=== PATIENT | male | born 1995 | race Caucasian/White ===

== ENCOUNTER 2016-09-18 18:23 | Emergency (ER) | payer OTHER ==
[2016-09-18] MEDS ORDERED: DIPHENOX-ATROP STARTER PACK 8 TAB BTL PO STA (19:06)
[2016-09-18] MEDS ORDERED: ONDANSETRON ODT 4 MG TAB PO STA (19:06)
[2016-09-18] MEDS ORDERED: ONDANSETRON 4 MG ODT STARTER PACK 2 TAB BTL PO STA (19:06)
--- NOTE | 2016-09-18 19:09 | ED ---
General Adult HPI - General Chief complaint: Nausea/Vomiting/Diarrhea Stated complaint: HOT AND COLD FLASHES, VOMITING Time Seen by Provider: 09/18/16 18:40 Source: patient, RN notes reviewed Mode of arrival: ambulatory Limitations: no limitations - History of Present Illness Initial comments: This is a 21-year-old male who presents emergency Department complaining of vomiting 3 today and diarrhea all day yesterday. Patient states the diarrhea is slowing down today. Patient states he has no abdominal pain. Patient denies any fever chills per patient states his had the same the last couple of days. Patient denies any back pain. Patient denies any dysuria hematuria urinary frequency. Patient denies any chest pain difficult breathing shortness of breath. Patient states he has been able to drink ike ramon. Patient states he hasn't vomited now for over 2 hours. - Related Data Home Medications Medication Instructions Recorded Confirmed No Known Home Medications [No 09/18/16 09/18/16 Known Home Medications] Allergies Allergy/AdvReac Type Severity Reaction Status Date / Time No Known Allergies Allergy Verified 09/18/16 18:56 Review of Systems ROS Statement: Those systems with pertinent positive or pertinent negative responses have been documented in the HPI. ROS Other: All systems not noted in ROS Statement are negative. Past Medical History Past Medical History: No Reported History History of Any Multi-Drug Resistant Organisms: None Reported Past Surgical History: No Surgical Hx Reported Past Psychological History: No Psychological Hx Reported Smoking Status: Never smoker Past Alcohol Use History: Occasional Past Drug Use History: Marijuana General Exam - General Exam Comments Initial Comments: GENERAL: Patient is well-developed and well-nourished. Patient is nontoxic and well- hydrated and is in no acute distress. ENT: Neck is soft and supple. No significant lymphadenopathy is noted. Moist mucous membranes. EYES: The sclera were anicteric and conjunctiva were pink and moist. Extraocular movements were intact and pupils were equal round and reactive to light. PULMONARY: Unlabored respirations. Good breath sounds bilaterally. No audible rales rhonchi or wheezing was noted. CARDIOVASCULAR: There is a regular rate and rhythm without any murmurs gallops or rubs. ABDOMEN: Soft and nontender with normal bowel sounds. No palpable organomegaly was noted. There is no palpable pulsatile mass. SKIN: Skin is clear with no lesions or rashes and otherwise unremarkable. NEUROLOGIC: Patient is alert and oriented x3. Cranial nerves II through XII are grossly intact. Motor and sensory are also intact. Normal speech, volume and content. Symmetrical smile. MUSCULOSKELETAL: Normal extremities with adequate strength and full range of motion. PSYCHIATRIC: Normal psychiatric evaluation. Limitations: no limitations Course Vital Signs 09/18/16 18:38 Temperature 97.9 F Pulse Rate 118 H Respiratory 20 Rate Blood Pressure 145/84 O2 Sat by Pulse 98 Oximetry Disposition Clinical Impression: Gastroenteritis Disposition: HOME SELF-CARE Condition: Good Instructions: Gastroenteritis (ED) Referrals: Kapil Roberts MD [Primary Care Provider] - 1-2 days Time of Disposition: 19:09
[2016-09-18 19:33] VITALS: BP 145/91; PULSE 100; RESP 18; TEMP 99.1
== END 2016-09-18 19:33 | disposition home or self-care (01) ==
LOC: EC 18:23
DX: K52.9 Noninfective gastroenteritis and colitis, unspecified (principal); R11.10 Vomiting, unspecified
CPT/HCPCS: 99283; S0119

== ENCOUNTER 2017-11-01 20:36 | Emergency (ER) | payer OTHER ==
[2017-11-01 20:55] VITALS: BP 157/88; PULSE 74; RESP 16; TEMP 98.1
[2017-11-01] MEDS ORDERED: DIPH,PERTUS(ACELL)TETVAC-LF 0.5 ML VIAL IM ONE (21:23)
--- NOTE | 2017-11-01 21:24 | ED ---
General Adult HPI - General Chief complaint: Animal Bite Stated complaint: cat bite Time Seen by Provider: 11/01/17 21:09 Source: patient, RN notes reviewed Mode of arrival: ambulatory Limitations: no limitations - History of Present Illness Initial comments: 22-year-old nail presents to the emergency room for a chief complaint of cat bite 2 hours ago to right foot. Patient is not sure if the cat is vaccinated but the cat is an indoor cat and never left the house. Patient's tetanus is not up-to-date. Patient denies any ALLERGIES to any medications or antibiotics. Patient denies any other injuries. Patient has no other complaints at this time including shortness of breath, chest pain, abdominal pain, nausea or vomiting, headache, or visual changes. - Related Data Home Medications Medication Instructions Recorded Confirmed lamoTRIgine [LaMICtal] 25 mg PO DAILY 11/01/17 11/01/17 traZODone HCL 50 mg PO HS 11/01/17 11/01/17 Previous Rx's Medication Instructions Recorded Amoxicillin/Potassium Clav 1 tab PO Q12HR #20 tab 11/01/17 [Augmentin 875-125 Tablet] Allergies Allergy/AdvReac Type Severity Reaction Status Date / Time No Known Allergies Allergy Verified 09/18/16 18:56 Review of Systems ROS Statement: Those systems with pertinent positive or pertinent negative responses have been documented in the HPI. ROS Other: All systems not noted in ROS Statement are negative. Past Medical History Past Medical History: No Reported History History of Any Multi-Drug Resistant Organisms: None Reported Past Surgical History: No Surgical Hx Reported Past Psychological History: No Psychological Hx Reported Smoking Status: Never smoker Past Alcohol Use History: Occasional Past Drug Use History: Marijuana General Exam Limitations: no limitations General appearance: alert, in no apparent distress Respiratory exam: Present: normal lung sounds bilaterally. Absent: respiratory distress, wheezes, rales, rhonchi, stridor Cardiovascular Exam: Present: regular rate, normal rhythm, normal heart sounds. Absent: systolic murmur, diastolic murmur, rubs, gallop, clicks Extremities exam: Present: full ROM (Full range motion of the digits of the right foot and the right ankle.), normal capillary refill (Refill less than 2 seconds and pedal pulse 2+.), other (There are 2 superficial abrasions about 2 cm in length on the dorsal right foot. No open lacerations. No drainage from the wounds.). Absent: tenderness (No tenderness in the right foot.), pedal edema, joint swelling Course Vital Signs 11/01/17 20:51 Temperature 98.1 F Pulse Rate 74 Respiratory 16 Rate Blood Pressure 157/88 O2 Sat by Pulse 98 Oximetry Medical Decision Making - Medical Decision Making 22-year-old male presents to the emergency department for a chief complaint of cat bite to the right foot. Patient states that the cat is an indoor cat and was never let outside before. Patient is not up-to-date on tetanus. On exam there is 2 superficial lacerations about 2 cm in length to the dorsal right foot. Patient has full range of motion of the right foot and right digits. No signs of infection present. No open lacerations that need stitches. Neurovascularly intact in the right lower extremity. Patient's foot was soaked in water and soap. He was given a tetanus shot. His foot was covered with bacitracin and wrapped. He will be given Augmentin. He is to follow-up with primary care in 1-2 days. He is to return to the emergency department if he has any worsening symptoms. Disposition Clinical Impression: Cat bite Disposition: HOME SELF-CARE Condition: Good Instructions: Animal Bite (ED) Additional Instructions: Take Augmentin as directed. Please monitor for any signs of infection such as spreading redness, streaking redness, or drainage from the wounds. Return if he notices any of these or any other worsening symptoms. Otherwise follow-up with primary care in 1-2 days. Prescriptions: Amoxicillin/Potassium Clav [Augmentin 875-125 Tablet] 1 tab PO Q12HR #20 tab Is patient prescribed a controlled substance at d/c from ED?: No Referrals: Kapil Roberts MD [Primary Care Provider] - 1-2 days Time of Disposition: 21:23
== END 2017-11-01 21:56 | disposition home or self-care (01) ==
LOC: EC 20:36
DX: S91.311A Laceration without foreign body, right foot, initial encounter (principal); Z23 Encounter for immunization; Z79.899 Other long term (current) drug therapy; W55.01XA Bitten by cat, initial encounter
CPT/HCPCS: 90471; 90715; 99283

== ENCOUNTER 2018-08-10 18:16 | Emergency (ER) | payer OTHER ==
[2018-08-10] MEDS ORDERED: SODIUM CHLORIDE 0.9% 500 ML 500 ML IV STA (18:53)
[2018-08-10 19:27] LABS: Basophils % (A) 0 %; Eosinophils # (A) 0.1 k/uL (0-0.7); Eosinophils % (A) 1 %; HCT 44.9 % (39.0-53.0); HGB 15.2 gm/dL (13.0-17.5); Lymphocytes # (A) 1.7 k/uL (1.0-4.8); Lymphocytes % (A) 11 %; MCH 28.8 pg (25.0-35.0); MCV 84.8 fL (80.0-100.0); Mean Platelet Volume 7.6; Monocytes # (A) 0.7 k/uL (0-1.0); Monocytes % (A) 5 %; Neutrophils # (A) 12.4 k/uL (1.3-7.7); Neutrophils % (A) 82 %; Platelet Count 225 k/uL (150-450); RBC 5.29 m/uL (4.30-5.90); RDW 13.2 % (11.5-15.5); WBC 15.1 k/uL (3.8-10.6)
[2018-08-10 19:43] LABS: ALT 47 U/L (21-72); AST 24 U/L (17-59); Alkaline Phosphatase 64 U/L (38-126); Anion Gap 11 mmol/L; Blood Urea Nitrogen 18 mg/dL (9-20); Calcium 9.9 mg/dL (8.4-10.2); Carbon Dioxide 29 mmol/L (22-30); Chloride 100 mmol/L (98-107); D-Dimer <0.17 mg/L FEU (<0.60); Glucose 91 mg/dL (74-99); Magnesium 2.1 mg/dL (1.6-2.3); Partial Thromboplastin Time 26.2 sec (22.0-30.0); Potassium 4.5 mmol/L (3.5-5.1); Prothrombin Time 10.3 sec (9.0-12.0); Sodium 140 mmol/L (137-145); Total Bilirubin 0.4 mg/dL (0.2-1.3); Total Protein 7.8 g/dL (6.3-8.2)
--- NOTE | 2018-08-10 20:10 | XR ---
EXAMINATION TYPE: XR chest 2V DATE OF EXAM: 08/10/2018 COMPARISON: 09/19/2014 HISTORY: Chest pain TECHNIQUE: Frontal and lateral views of the chest are obtained. FINDINGS: Heart and mediastinum are normal. Lungs are clear. Diaphragm is normal. Bony thorax appear s normal. IMPRESSION: Normal chest. No change.
--- NOTE | 2018-08-10 20:23 | ED ---
General Adult HPI - General Chief complaint: Chest Pain Stated complaint: Body aches, cold symptoms Time Seen by Provider: 08/10/18 18:44 Source: patient, RN notes reviewed, old records reviewed Mode of arrival: ambulatory Limitations: no limitations - History of Present Illness Initial comments: 23-year-old male patient past medical history of depression presents to ED with substernal chest pressure for approximately 6 hours. Patient states that this is worse with lying down, does not feel any discomfort while sitting up standing , walking, physical exertion. Patient reports that while laying down he does have some pleuritic chest pain as well. Patient denies any shortness of breath. Patient reports that he has had some rhinitis last 3 days. Patient denies any other complaints. Systemic: Pt denies fatigue, myalgia, fever/chills, rash. Pt denies weakness, night sweats, weight loss. Neuro: Pt denies headache, visual disturbances, syncope or pre-syncope. HEENT: Pt denies ocular discharge or irritation, otalgia, rhinorrhea, pharyngitis or notable lymphadenopathy. Cardiopulmonary: Pt denies SOB, heart palpitations, dyspnea on exertion. Abdominal/GI: Pt denies abdominal pain, n/v/d. : Pt denies dysuria, burning w/ urination, frequency/urgency. Denies new onset urinary or bowel incontinence. MSK: Pt denies myalgia, loss of strength or function in extremities. Neuro: Pt denies new onset weakness, paresthesias. - Related Data Home Medications Medication Instructions Recorded Confirmed hydrOXYzine PAMOATE 50 mg PO HS 08/10/18 08/10/18 lamoTRIgine [LaMICtal] 100 mg PO DAILY 08/10/18 08/10/18 Previous Rx's Medication Instructions Recorded Ibuprofen [Motrin] 600 mg PO Q6HR PRN #40 day 08/10/18 Allergies Allergy/AdvReac Type Severity Reaction Status Date / Time No Known Allergies Allergy Verified 08/10/18 19:19 Review of Systems ROS Statement: Those systems with pertinent positive or pertinent negative responses have been documented in the HPI. ROS Other: All systems not noted in ROS Statement are negative. Past Medical History Past Medical History: No Reported History History of Any Multi-Drug Resistant Organisms: None Reported Past Surgical History: No Surgical Hx Reported Past Psychological History: No Psychological Hx Reported Smoking Status: Never smoker Past Alcohol Use History: Occasional Past Drug Use History: Marijuana General Exam - General Exam Comments Initial Comments: Constitutional: NAD, AOX3, Pt has pleasant affect. HEENT: NC/AT, trachea midline, neck supple, no lymphadenopathy. Posterior pharynx non erythematous, without exudates. External ears appear normal, without discharge. Mucous membranes moist. Eyes PERRLA, EOM intact. There is no scleral icterus. No pallor noted. Cardiopulmonary: RRR, no murmurs, rubs or gallops, no JVD noted. Lungs CTAB in anterior and posterior young. No peripheral edema. Abdominal exam: Abdomen soft and non-distended. Abdomen non-tender to palpation in all 4 quadrants. Bowel sounds active in LLQ. No hepatosplenomegaly. No ecchymosis Neuro: CN II-XII grossly intact. No nuchal rigidity. MSK: No posterior calf tenderness bilaterally, homans sign negative bilaterally. Posterior tibialis and radial pulse +2 bilaterally. Sensation intact in upper and lower extremities. Full active ROM in upper and lower extremities, 5/5 stregnth. Limitations: no limitations Course Vital Signs 08/10/18 08/10/18 18:38 20:39 Temperature 98.9 F 100.9 F H Pulse Rate 112 H 104 H Respiratory 18 19 Rate Blood Pressure 144/96 151/91 O2 Sat by Pulse 98 97 Oximetry Medical Decision Making - Medical Decision Making 23-year-old male patient past medical history of depression presents to ED with substernal chest pressure for approximately 6 hours. Patient states that this is worse with lying down, does not feel any discomfort while sitting up standing , walking, physical exertion. Patient reports that while laying down he does have some pleuritic chest pain as well. Patient denies any shortness of breath. Patient reports that he has had some rhinitis last 3 days. Patient denies any other complaints. Patient vital signs initially displayed mild tachycardia, VS then displayed mild fever of 100.9. Physical exam did not display acute pathology. Laboratory investigations revealed mild leukocytosis of 15.1. Coagulation studies within normal limits. D-dimer negative. CMP within normal limits. Troponin negative. Chest x-ray did not display any acute process. EKG not concerning for an acute ischemia. Patient was recommended admission for evaluation of possible viral illness versus pericarditis/myocarditis. Patient declined admission, states that he is now asymptomatic, wishes to go home. Pt discharged with ibuprofen. Pt will follow up with PCP in 1-2 days, will return to ED if symptoms worsen in anyway. Case discussed with Dr. Melo. - Lab Data Result diagrams: 08/10/18 19:11 08/10/18 19:11 Lab Results 08/10/18 08/10/18 08/10/18 Range/Units 19:11 19:11 19:11 WBC 15.1 H (3.8-10.6) k/uL RBC 5.29 (4.30-5.90) m/uL Hgb 15.2 (13.0-17.5) gm/dL Hct 44.9 (39.0-53.0) % MCV 84.8 (80.0-100.0) fL MCH 28.8 (25.0-35.0) pg MCHC 34.0 (31.0-37.0) g/dL RDW 13.2 (11.5-15.5) % Plt Count 225 (150-450) k/uL Neutrophils % 82 % Lymphocytes % 11 % Monocytes % 5 % Eosinophils % 1 % Basophils % 0 % Neutrophils # 12.4 H (1.3-7.7) k/uL Lymphocytes # 1.7 (1.0-4.8) k/uL Monocytes # 0.7 (0-1.0) k/uL Eosinophils # 0.1 (0-0.7) k/uL Basophils # 0.0 (0-0.2) k/uL PT 10.3 (9.0-12.0) sec INR 1.0 (<1.2) APTT 26.2 (22.0-30.0) sec D-Dimer <0.17 (<0.60) mg/L FEU Sodium 140 (137-145) mmol/L Potassium 4.5 (3.5-5.1) mmol/L Chloride 100 (98-107) mmol/L Carbon Dioxide 29 (22-30) mmol/L Anion Gap 11 mmol/L BUN 18 (9-20) mg/dL Creatinine 0.78 (0.66-1.25) mg/dL Est GFR (CKD-EPI)AfAm >90 (>60 ml/min/1.73 sqM) Est GFR (CKD-EPI)NonAf >90 (>60 ml/min/1.73 sqM) Glucose 91 (74-99) mg/dL Calcium 9.9 (8.4-10.2) mg/dL Magnesium 2.1 (1.6-2.3) mg/dL Total Bilirubin 0.4 (0.2-1.3) mg/dL AST 24 (17-59) U/L ALT 47 (21-72) U/L Alkaline Phosphatase 64 (38-126) U/L Troponin I (0.000-0.034) ng/mL Total Protein 7.8 (6.3-8.2) g/dL Albumin 5.0 (3.5-5.0) g/dL 08/10/18 Range/Units 19:11 WBC (3.8-10.6) k/uL RBC (4.30-5.90) m/uL Hgb (13.0-17.5) gm/dL Hct (39.0-53.0) % MCV (80.0-100.0) fL MCH (25.0-35.0) pg MCHC (31.0-37.0) g/dL RDW (11.5-15.5) % Plt Count (150-450) k/uL Neutrophils % % Lymphocytes % % Monocytes % % Eosinophils % % Basophils % % Neutrophils # (1.3-7.7) k/uL Lymphocytes # (1.0-4.8) k/uL Monocytes # (0-1.0) k/uL Eosinophils # (0-0.7) k/uL Basophils # (0-0.2) k/uL PT (9.0-12.0) sec INR (<1.2) APTT (22.0-30.0) sec D-Dimer (<0.60) mg/L FEU Sodium (137-145) mmol/L Potassium (3.5-5.1) mmol/L Chloride (98-107) mmol/L Carbon Dioxide (22-30) mmol/L Anion Gap mmol/L BUN (9-20) mg/dL Creatinine (0.66-1.25) mg/dL Est GFR (CKD-EPI)AfAm (>60 ml/min/1.73 sqM) Est GFR (CKD-EPI)NonAf (>60 ml/min/1.73 sqM) Glucose (74-99) mg/dL Calcium (8.4-10.2) mg/dL Magnesium (1.6-2.3) mg/dL Total Bilirubin (0.2-1.3) mg/dL AST (17-59) U/L ALT (21-72) U/L Alkaline Phosphatase (38-126) U/L Troponin I <0.012 (0.000-0.034) ng/mL Total Protein (6.3-8.2) g/dL Albumin (3.5-5.0) g/dL - EKG Data -: EKG Interpreted by Me (and dr melo) EKG Comments: Ventricular rate 102, WA interval 162, QRS 96, QT/QTC 336/437. Sinus tachycardia, otherwise normal EKG. Disposition Clinical Impression: Atypical chest pain Disposition: HOME SELF-CARE Condition: Stable Instructions (If sedation given, give patient instructions): Chest Pain (ED), Viral Syndrome (ED) Additional Instructions: Patient to adhere to previously discussed treatment plan and will take medication(s) as directed. Patient to follow up with PCP in 1-2 days. Patient to return to ED if symptoms do not improve. This take ibuprofen scheduled for 3 days. Then use ibuprofen as needed for fever or pain. Please return to ER if condition worsens in any way. Prescriptions: Ibuprofen [Motrin] 600 mg PO Q6HR PRN #40 day PRN Reason: Pain Is patient prescribed a controlled substance at d/c from ED?: No Referrals: Kapil Roberts MD [Primary Care Provider] - 1-2 days Time of Disposition: 21:12
[2018-08-10 20:40] VITALS: BP 151/91; PULSE 104; RESP 19; TEMP 100.9
== END 2018-08-10 21:19 | disposition home or self-care (01) ==
LOC: EC 18:16
DX: R07.81 Pleurodynia (principal); R00.0 Tachycardia, unspecified; D72.829 Elevated white blood cell count, unspecified; R50.9 Fever, unspecified; Z79.899 Other long term (current) drug therapy
CPT/HCPCS: 36415; 71046; 80053; 83735; 84484; 85025; 85379; 85610; 85730; 93005; 96360; 99285